=== PATIENT | female | born 1995 | race Two or more races ===

== ENCOUNTER 2020-01-20 22:08 | Observation (INO) | payer MEDICAID, OTHER ==
[~2020-01-20] VITALS: Ht 162.6 cm; Wt 115.7 kg
[2020-01-20 22:12] VITALS: BP 125/71
[2020-01-20] MEDS ORDERED: CEFTRIAXONE SODIUM 2 GM in D5W 5% 50 ML IV ONE (22:30)
[2020-01-20] MEDS ORDERED: cefTRIAXone 1GM/50ML D5W 100 ML IV ONE (22:51)
[2020-01-20] MEDS ORDERED: SODIUM CHLORIDE 0.9% 1,000 ML IV ONE (23:00)
[2020-01-20] MEDS ORDERED: TERBUTALINE SULFATE 1 MG/ML 1ML VIAL SC SCH (23:00)
[2020-01-20] MEDS ORDERED: cefTRIAXone 1GM/50ML D5W 50 ML IV ONE ×2 (23:00)
[2020-01-20] MEDS ORDERED: PREN-96 PO (23:05)
[2020-01-21] MEDS ORDERED: CEPH250C PO (00:35)
== END 2020-01-21 10:15 | disposition home or self-care (01) ==
LOC: ER 22:08 → LDRP 22:09 → UNDOADMOB 22:41 → LDRP 22:41 → UNDODISOB 01-21 00:45
PROVIDERS: ADMIT Specialist; ATTEND Specialist
DX: O62.9 Abnormality of forces of labor, unspecified (principal); O26.893 Other specified pregnancy related conditions, third trimester; Z3A.38 38 weeks gestation of pregnancy
CPT/HCPCS: 59025; 81002; 94762; 96361; 96365; 96372; 99284; G0378; J0696; J3105; J7060; 96360

== ENCOUNTER → 2020-01-24 | Outpatient (CLI) | payer MEDICAID ==
[~2020-01-24] MED LIST: CEPH250C PO; PREN-96 PO; TETRACAINE 1% INJ 2 ML VIAL IJ ONE
--- NOTE | 2020-01-24 07:25 | NUR ---
PREOP IN HOUSE COVID TEST COLLECTED.
--- NOTE | 2020-01-25 19:18 | NUR ---
CALL PLACED TO PT. PT EDUCATED ON PROCEDURE FOR COVID POSITIVE ADMISSION TO L&D.
== END | disposition home or self-care (01) ==
LOC: OB 07:15
PROVIDERS: ATTEND Obstetrics & Gynecology
DX: U07.1 COVID-19 (principal)
CPT/HCPCS: C9803; U0003

== ENCOUNTER 2020-01-26 04:13 | Inpatient (IN) | payer MEDICAID ==
[~2020-01-26] VITALS: Ht 162.6 cm; Wt 122.5 kg
[2020-01-26] VITALS (17 sets, daily range): BP systolic 110–134; BP diastolic 54–71
[~2020-01-26 04:13] MED LIST changes: -TETRACAINE 1% INJ 2 ML VIAL IJ ONE
[2020-01-26] MEDS ORDERED: ceFAZolin 1GM/50ML 50 ML IV ONE (04:45)
[2020-01-26] MEDS ORDERED: LACTATED RINGER'S 1,000 ML IV ONE (04:45)
[2020-01-26] MEDS: LACTATED RINGER'S 1,000 ML IV SCH ×2 (05:06→22:52)
[2020-01-26 06:04] LABS: Basophils # (auto) 0 10 ^3/uL (0-0.2); Eosinophils # (auto) 0.1 10 ^3/uL (0-0.8); Hemoglobin 11.6 g/dL (12.2-16.2); Mean Corpuscular Volume 81.6 fL (80.0-100.0); Monocytes # (auto) 0.6 10 ^3/uL (0-1.3); Neutrophils # (auto) 6.5 10 ^3/uL (1.6-8.6)
[2020-01-26 06:07] LABS: Basophils % (auto) 0.4 % (0.0-2.0); Hematocrit 35.6 % (36.0-46.0); Lymphocytes # (auto) 2.3 10 ^3/uL (0.4-5.4); Lymphocytes % (auto) 23.6 % (10.0-50.0); Mean Corpuscular Hemoglobin 26.6 pg (28.0-32.0); Mean Corpuscular Hgb Conc. 32.6 g/dL (32.0-36.0); Monocytes % (auto) 6.7 % (0.0-12.0); Neutrophils % (auto) 68.3 % (37.0-80.0); Nucleated Red Blood Cells % 0.1 %; Platelet Count (auto) 286 10^3/uL (140-450); Red Blood Cells 4.36 10^6/uL (4.0-5.20); White Blood Cell 9.6 10^3/uL (4.4-10.8)
[2020-01-26 06:14] LABS: Potassium 4.1 mmol/L (3.5-5.1)
[2020-01-26 06:16] LABS: INR 0.94 (0.9-1.15); Partial Thromboplastin Time 24.7 sec (23.0-31.2)
[2020-01-26 06:21] LABS: Albumin 2.6 g/dL (3.4-5.0); BUN/Creatinine Ratio 27.1; Bilirubin, Total 0.2 mg/dL (0.2-1.0); Calcium 8.8 mg/dL (8.5-10.1); Total Protein 7.1 g/dL (6.4-8.2)
[2020-01-26 06:45] LABS: Urine Bacteria MOD /hpf (None Seen); Urine Blood Negative /uL (Negative); Urine Mucus FEW (None Seen); Urine Specific Gravity 1.026 (1.001-1.035); Urine WBC 1 /hpf (0 - 5)
[2020-01-26] MEDS ORDERED: SUCCINYLCHOLINE CHLORIDE 20 MG/ML 10ML VIAL IV ONE (07:11)
[2020-01-26] MEDS ORDERED: fentaNYL CITRATE 100 MCG/2 ML VL ONE (07:24)
[2020-01-26] MEDS ORDERED: MORPHINE SULF(PF) 0.5MG/ML 10ML VIAL ONE (07:24)
[2020-01-26] MEDS ORDERED: LACT. RINGERS/OXYTOCIN 20UNITS 1,000 ML IV ONE (08:00)
[2020-01-26] MEDS ORDERED: GUM (CHEWING) 1 GUM CHEW CHEW ONE (08:00)
[2020-01-26] MEDS ORDERED: ceFAZolin 1GM/50ML 50 ML IV SCH (08:00)
[2020-01-26] MEDS ORDERED: ONDANSETRON HCL 4 MG/2 ML VIAL IV PRN (10:00)
[2020-01-26] MEDS ORDERED: HYDROmorphone HCL 2 MG/ML VL IV PRN (10:00)
[2020-01-26] MEDS ORDERED: hydrALAZINE HCL 20 MG/ML VL IV PRN (10:00)
[2020-01-26] MEDS ORDERED: ePHEDrine SULFATE 50 MG/ML AMP IV PRN (10:00)
--- NOTE | 2020-01-26 10:30 | NUR ---
Post Op for LDRP: Received patient from PACU via bed to room 1. Patient A/A/Ox4, abdominal binder and bilateral SCD's are in place, IV fluids placed on pump and infusing per order, incisional site dressing clean/dry/intact and Merlos Catheter to gravity draining clear yellow urine. Incentive Spirometer at bedside and instruction on proper use with return demonstration done by patient.
--- NOTE | 2020-01-26 11:00 | NUR ---
Patient states wanting to exclusively bottle feed . Education on the benefits of given to patient as well as formula preparation, frequency/amount of bottle feeding. All questions and concerns addressed at this time. Patient verbalizes understanding.
[2020-01-26] MEDS: ONDANSETRON HCL 4 MG/2 ML VIAL IV PRN ×2 (11:13→17:20)
[2020-01-26] MEDS: MORPHINE SULFATE 4 MG/ML SYR/VIAL IV PRN ×2 (11:15→17:22)
[2020-01-26] MEDS: ACETAMINOPHEN IV 1000 MG/100ML (10MG/ML) IV PRN ×2 (12:29→20:34)
[2020-01-26] MEDS: ceFAZolin 1GM/50ML 50 ML IV SCH (15:54)
[2020-01-26 20:39] LABS: Basophils # (auto) 0 10 ^3/uL (0-0.2); Basophils % (auto) 0.2 % (0.0-2.0); Eosinophils # (auto) 0 10 ^3/uL (0-0.8); Eosinophils % (auto) 0.2 % (0.0-7.0); Hematocrit 34.5 % (36.0-46.0); Hemoglobin 11.1 g/dL (12.2-16.2); Lymphocytes # (auto) 1.2 10 ^3/uL (0.4-5.4); Lymphocytes % (auto) 9.5 % (10.0-50.0); Mean Corpuscular Hemoglobin 26.3 pg (28.0-32.0); Mean Corpuscular Hgb Conc. 32.1 g/dL (32.0-36.0); Monocytes # (auto) 0.6 10 ^3/uL (0-1.3); Neutrophils # (auto) 10.8 10 ^3/uL (1.6-8.6); Neutrophils % (auto) 85.1 % (37.0-80.0); Nucleated Red Blood Cells % 0.1 %; Platelet Count (auto) 248 10^3/uL (140-450); Red Cell Distribution Width 15.2 % (11.8-14.3); White Blood Cell 12.7 10^3/uL (4.4-10.8)
--- NOTE | 2020-01-26 22:25 | NUR ---
Ambulation: Pericare done. Peripad and underwear provided. Patient OOB with standby assistance by RN. Patient ambulated to bedside chair, steady gait. Clean gown provided and bed linen changed. Patient ambulated back to bed with steady gait and no distress noted.
[2020-01-27] VITALS (12 sets, daily range): BP systolic 111–140; BP diastolic 55–78
[2020-01-27] MEDS: ONDANSETRON HCL 4 MG/2 ML VIAL IV PRN ×2 (00:21→04:52)
[2020-01-27] MEDS: MORPHINE SULFATE 4 MG/ML SYR/VIAL IV PRN ×2 (00:24→04:57)
[2020-01-27] MEDS: ceFAZolin 1GM/50ML 50 ML IV SCH ×2 (00:26→08:20)
[2020-01-27] MEDS: ACETAMINOPHEN IV 1000 MG/100ML (10MG/ML) IV PRN (05:37)
--- NOTE | 2020-01-27 05:45 | NUR ---
Garcia catheter dc'd Order to discontinue garcia catheter. Garcia dc'd with clean technique following deflation of balloon. Patient tolerated well with no complaints of pain. Continue care.
[2020-01-27 06:06] LABS: RPR Non Reactive (Non Reactive)
--- NOTE | 2020-01-27 07:12 | NUR ---
Dr. Amado doing rounds. PP day one orders received. Orders read back to be implemented.
[2020-01-27] MEDS ORDERED: BISACODYL 10 MG RECT SUPP PR PRN (07:15)
[2020-01-27] MEDS ORDERED: HYDROcodone-ACET 5/325MG TAB PO PRN (07:15)
[2020-01-27] MEDS ORDERED: LACTATED RINGER'S 1,000 ML IV SCH (07:15)
[2020-01-27 07:58] LABS: Basophils # (auto) 0 10 ^3/uL (0-0.2); Eosinophils # (auto) 0.1 10 ^3/uL (0-0.8); Eosinophils % (auto) 1.4 % (0.0-7.0); Hemoglobin 10.3 g/dL (12.2-16.2); Monocytes # (auto) 0.5 10 ^3/uL (0-1.3)
[2020-01-27 08:01] LABS: Basophils % (auto) 0.2 % (0.0-2.0); Hematocrit 31.5 % (36.0-46.0); Lymphocytes # (auto) 1.6 10 ^3/uL (0.4-5.4); Lymphocytes % (auto) 17.8 % (10.0-50.0); Mean Corpuscular Hemoglobin 26.7 pg (28.0-32.0); Mean Corpuscular Hgb Conc. 32.7 g/dL (32.0-36.0); Mean Corpuscular Volume 81.5 fL (80.0-100.0); Monocytes % (auto) 5.1 % (0.0-12.0); Neutrophils # (auto) 6.9 10 ^3/uL (1.6-8.6); Neutrophils % (auto) 75.5 % (37.0-80.0); Platelet Count (auto) 207 10^3/uL (140-450); Red Blood Cells 3.86 10^6/uL (4.0-5.20); Red Cell Distribution Width 14.9 % (11.8-14.3); White Blood Cell 9.1 10^3/uL (4.4-10.8)
--- NOTE | 2020-01-27 08:13 | NUR ---
Ambulation: Patient OOB with standby assistance by RN. Patient ambulated to bathroom with steady gait. Patient able to void without difficulty. Pericare teaching provided with returned demonstration by patient. Patient ambulated back to bed with steady gait and no distress noted.
[2020-01-27] MEDS: HYDROcodone-ACET 5/325MG TAB PO PRN ×3 (09:16→19:40)
[2020-01-27] MEDS: DOCUSATE SOD 100 MG CAP PO SCH ×2 (09:17→22:00)
[2020-01-27] MEDS ORDERED: DOCUSATE CALCIUM 240 MG CAP PO SCH (10:00)
[2020-01-27] MEDS: SIMETHICONE 80 MG CHEWABLE TABLET PO SCH ×3 (12:31→22:00)
[2020-01-27] MEDS: IBUPROFEN 800 MG TAB PO PRN ×2 (12:36→23:59)
[2020-01-28] MEDS: HYDROcodone-ACET 5/325MG TAB PO PRN ×5 (02:54→22:51)
[2020-01-28 03:01] VITALS: BP 118/61
[2020-01-28] MEDS: SIMETHICONE 80 MG CHEWABLE TABLET PO SCH ×4 (05:21→22:50)
[2020-01-28 07:30] VITALS: BP 125/58
[2020-01-28] MEDS: DOCUSATE SOD 100 MG CAP PO SCH ×2 (10:25→22:50)
[2020-01-28] MEDS: IBUPROFEN 800 MG TAB PO PRN ×2 (10:28→19:31)
[2020-01-28 10:32] VITALS: BP 140/66
[2020-01-28] MEDS: CEPHALEXIN 250 MG CAP PO SCH ×3 (12:26→22:50)
[2020-01-28 14:45] VITALS: BP 115/57
[2020-01-28 19:27] VITALS: BP 118/59
[2020-01-28 22:58] VITALS: BP 136/83
[2020-01-29 03:24] VITALS: BP 119/63
[2020-01-29] MEDS: IBUPROFEN 800 MG TAB PO PRN (03:25)
[2020-01-29] MEDS: CEPHALEXIN 250 MG CAP PO SCH (05:29)
[2020-01-29] MEDS: HYDROcodone-ACET 5/325MG TAB PO PRN ×2 (05:29→10:36)
[2020-01-29] MEDS: SIMETHICONE 80 MG CHEWABLE TABLET PO SCH (05:29)
[2020-01-29 07:00] VITALS: BP 117/62
--- NOTE | 2020-01-29 07:30 | NUR ---
IV removal 20g peripheral IV to left hand DC'd with clean technique, catheter fully intact. Pressure dressing applied to site. Patient tolerated well Addendum: 01/29/20 at 0852 by Hazel Dougherty RN Amended: Links added.
--- NOTE | 2020-01-29 07:30 | NUR ---
Lower abdominal incision clean, dry and well approximated with 15 corina present and intact. Addendum: 01/29/20 at 0857 by Hazel Dougherty RN Amended: Links added.
[2020-01-29 07:48] VITALS: BP 117/62
--- NOTE | 2020-01-29 08:00 | NUR ---
P[place]is removed. 15 corina removed intact from lower abdominal incision. Incision site clean, dry, and well approximated. Steri-strips applied to site. Pt tolerated procedure well.
[2020-01-29] MEDS: DOCUSATE SOD 100 MG CAP PO SCH (10:35)
--- NOTE | 2020-01-29 11:30 | NUR ---
Discharge: Discharge instructions given as ordered. Pt encouraged to follow up with [facility] as instructed. All questions and concerns addressed. Patient verbalized understanding. Medication reconciliation completed and copy given to patient. All required/requested vaccines given and copies of vaccinations given to patient. Patient encouraged to prepare to depart unit.
[2020-01-29 13:30] VITALS: BP 137/77
--- NOTE | 2020-01-29 13:44 | NUR ---
Discharge: Patient taken to vehicle via wheelchair with all personal belongings, accompanied by staff and family member. No distress noted at time of departure, no adverse changes in status since initial assessment.
== END 2020-01-29 13:44 | disposition home or self-care (01) | DRG 540 ==
LOC: LDRP 04:13
PROVIDERS: ADMIT Specialist; ATTEND Specialist
PROC: 10D00Z1 Extraction of Products of Conception, Low, Open Approach (ICD-10-PCS; principal; 2020-01-26 07:55)
DX: O34.219 Maternal care for unspecified type scar from previous cesarean delivery (principal); Z37.0 Single live birth; O99.63 Diseases of the digestive system complicating the puerperium; K66.0 Peritoneal adhesions (postprocedural) (postinfection); O99.214 Obesity complicating childbirth; E66.9 Obesity, unspecified; O98.52 Other viral diseases complicating childbirth; U07.1 COVID-19; Z3A.00 Weeks of gestation of pregnancy not specified
CPT/HCPCS: 36415; 59025; 80053; 81001; 85025; 85610; 85730; 86592; 86850; 86900; 86901; 94762; 96360; 96361; 96365; 96366; 96374; 96375; G0378; J0131; J0330; J0690; J2405; J2590